=== PATIENT | female | born 1990 | race Caucasian/White ===

== ENCOUNTER 2017-01-15 12:11 | Emergency (ER) | payer MEDICAID ==
[2017-01-15 11:48] LABS: INFLUENZA A NEG (NEG); INFLUENZA B NEG (NEG)
[~2017-01-15 12:11] MED LIST: ALBUTEROL17 GM INH; AMOXICILLIN500 M1 PO; BACTRIM DS TABL1 TA1 PO; DOXYCYCLINE HY100 M3 PO; IBUPROFEN PO; IRON1 TAB PO; LINZESS145 MCG PO; NO MEDICATIONS; PENICILLIN PO; PREDNISONE PO; PRENATAL1 TA1 PO; PYRIDIUM PO; SEPTRA DS PO; TYLENOL #3 PO; ZITHROMAX PO; ZOLOFT50 MG PO; ZYRTEC PO
== END 2017-01-15 12:28 | disposition home or self-care (01) ==
LOC: SED 12:11
PROVIDERS: Physician Assistant
DX: J02.0 Streptococcal pharyngitis (principal); Z98.890 Other specified postprocedural states; Z88.1 Allergy status to other antibiotic agents
CPT/HCPCS: 87804; 87880; 99282